=== PATIENT | female | born 1985 | race Caucasian/White ===

== ENCOUNTER 2020-05-03 10:50 | Inpatient (IN) | payer SELFPAY ==
[~2020-05-03] VITALS: Ht 154.9 cm; Wt 86.0 kg
[2020-05-03] MEDS ORDERED: NS IV 1000 ML 1,000 ML IV STA (11:12)
[2020-05-03] MEDS ORDERED: fentaNYL INJ 100 MCG/2 ML AMP IVP STA ×2 (11:16→13:26)
--- NOTE | 2020-05-03 11:25 | ED EENT ---
History of Present Illness General Chief Complaint: Dental Problems/Pain Stated Complaint: ABCESS TOOTH Nursing Triage Note: AMB TO ROOM WITH MOTHER WAS SENT FROM [facility] WITH TOOTH ACHE. ONSET OF TOOTH ACHE ON SATURDAY. WAS SEEN IN [facility] ON SAT AND STARTED ON AMOXIL. DID NOT HELP SO WENT BACK TO ED ON SATURDAY. RECEIVED IM OF ROCEPHIN. Source: patient Exam Limitations: no limitations (TAMIKA BRAXTON,AZRA KRAUSE) History of Present Illness Date Seen by Provider: May 03, 2020 Time Seen by Provider: 11:06 Initial Comments Presents to the ED via private vehicle. Complains of right tooth abscess and jaw pain. She was seen 04/30/20 at the [facility] for these symptoms. She was prescribed pain medications and penicillin TID at that time. Her symptoms worsened and she returned to the ED 05/01/20, rocephin IM and IM steroids given at that time. She states symptoms improved until last night. She was seen at [facility] today and advised to go to the ED. Associated symptoms include neck pain/swelling, right ear pain, right jaw pain, dysphagia, fever, chills, and sore throat. She has tried hydromorphone and tylenol for pain with limited relief. Last taken 3 hours prior to arrival. She has had a dental abscess in the past followed by a tooth extraction. She has been unable to see a dentist for her current concerns. She is a current everyday drinker - 1 pint/day of whiskey. Has not drank since . Denies withdrawal symptoms. Timing/Duration: gradual, last week Location: dental (and right jaw) Prearrival Treatment: other (amoxicillin, rocephin, prednisone, oral pain medications) Associated Symptoms: No cough, No drooling; facial pain/swelling, fever, sore throat, tooth pain (TAMIKA BRAXTON,MED STUDENT) Timing/Duration: last week Location: facial, dental (and right jaw) Prearrival Treatment: prescription meds Associated Symptoms: facial pain/swelling, fever, sore throat, tooth pain (SANDRA JACOB MD) Allergies and Home Medications Allergies Coded Allergies: Latex, Natural Rubber (Verified Allergy, Unknown, 05/03/20) carbamazepine (Verified Allergy, Unknown, 05/03/20) latex (Verified Allergy, Unknown, 05/03/20) tramadol (Verified Allergy, Unknown, 05/03/20) Patient Home Medication List Home Medication List Reviewed: Yes (SANDRA JACOB MD) Review of Systems Review of Systems Constitutional: chills, fever Ears: Pain (right) Mouth: see HPI, pain, swelling Throat: pain, painful swallowing Respiratory: No cough Cardiovascular: No chest pain Gastrointestinal: No abdominal pain, No diarrhea Skin: no symptoms reported (TAMIKA BRAXTON MED STUDENT) Constitutional: chills, fever Ears: Pain (right); Denies Purulent Discharge Mouth: pain, swelling Throat: pain; denies hoarse, denies aphonia Respiratory: No dyspnea on exertion, No short of breath (SANDRA JACOB MD) All Other Systems Reviewed Negative Unless Noted: Yes (SANDRA JACOB MD) Past Ximlikv-Phpbyf-Llapji Hx Past Med/Social Hx: Reviewed Nursing Past Med/Soc Hx (SANDRA JACOB MD) Patient Social History Alcohol Use: Regular Use Alcohol Beverage of Choice: Whiskey Recent Infectious Disease Expo: No (TAMIKA BRAXTON MED STUDENT) Past Medical History Surgeries: Yes (HERNIA) Section Respiratory: No Cardiac: Yes Hypertension Neurological: No Genitourinary: No Gastrointestinal: No Musculoskeletal: No Endocrine: Yes Hypothyroidsim Cancer: No Integumentary: No (TAMIKA BRAXTON MED STUDENT) Family Medical History Reviewed Nursing Family Hx (SANDRA JACOB MD) Physical Exam Vital Signs Vital Signs - First Documented 05/03/20 10:54 Temp 36.7 Pulse 95 Resp 18 B/P (MAP) 151/118 (129) Pulse Ox 97 O2 Delivery Room Air (SANDRA JACOB MD) Height, Weight, BMI Height: '" Weight: lbs. oz. kg; 35.00 BMI Method: General Appearance: WD/WN, mild distress Eyes: bilateral eye PERRL, bilateral eye EOMI Mouth/Throat: maxillary swelling (limited exam due to pain with opening mouth), other (poor dentition) Neck: other (right jaw and neck swelling) Cardiovascular: regular rate, rhythm, no murmur Respiratory: lungs clear, normal breath sounds, no respiratory distress, no accessory muscle use Gastrointestinal: non tender, soft Neurologic/Psychiatric: alert, normal mood/affect, oriented x 3 Skin: normal color, warm/dry (VENN,TAMIKA,MED STUDENT) General Appearance: WD/WN, mild distress Nose: normal inspection; No active bleeding Mouth/Throat: maxillary swelling (limited exam due to pain with opening mouth but no obvious abscess within the mouth.), other (poor dentition) Neck: full range of motion, supple, lymphadenopathy (R); No lymphadenopathy (L) Cardiovascular: regular rate, rhythm, no murmur Respiratory: lungs clear, normal breath sounds Gastrointestinal: non tender, soft Neurologic/Psychiatric: alert, normal mood/affect, oriented x 3 Skin: normal color, warm/dry (SANDRA JACOB MD) Progress/Results/Core Measures Results/Orders Lab Results Laboratory Tests Test 05/03/20 11:23 05/03/20 12:10 Range/Units White Blood Count 11.8 H 4.3-11.0 10^3/uL Red Blood Count 4.30 3.80-5.11 10^6/uL Hemoglobin 13.6 11.5-16.0 g/dL Hematocrit 39 35-52 % Mean Corpuscular Volume 91 80-99 fL Mean Corpuscular Hemoglobin 32 25-34 pg Mean Corpuscular Hemoglobin Concent 35 32-36 g/dL Red Cell Distribution Width 13.7 10.0-14.5 % Platelet Count 367 130-400 10^3/uL Mean Platelet Volume 8.9 L 9.0-12.2 fL Immature Granulocyte % (Auto) 0 % Neutrophils (%) (Auto) 73 42-75 % Lymphocytes (%) (Auto) 20 12-44 % Monocytes (%) (Auto) 5 0-12 % Eosinophils (%) (Auto) 1 0-10 % Basophils (%) (Auto) 0 0-10 % Neutrophils # (Auto) 8.6 H 1.8-7.8 10^3/uL Lymphocytes # (Auto) 2.4 1.0-4.0 10^3/uL Monocytes # (Auto) 0.6 0.0-1.0 10^3/uL Eosinophils # (Auto) 0.1 0.0-0.3 10^3/uL Basophils # (Auto) 0.0 0.0-0.1 10^3/uL Immature Granulocyte # (Auto) 0.0 0.0-0.1 10^3/uL Prothrombin Time 13.1 12.2-14.7 SEC INR Comment 1.0 0.8-1.4 Activated Partial Thromboplast Time 32 24-35 SEC Sodium Level 136 135-145 MMOL/L Potassium Level 3.5 L 3.6-5.0 MMOL/L Chloride Level 105 98-107 MMOL/L Carbon Dioxide Level 19 L 21-32 MMOL/L Anion Gap 12 5-14 MMOL/L Blood Urea Nitrogen 8 7-18 MG/DL Creatinine 0.61 0.60-1.30 MG/DL Estimat Glomerular Filtration Rate > 60 BUN/Creatinine Ratio 13 Glucose Level 127 H 70-105 MG/DL Calcium Level 9.0 8.5-10.1 MG/DL Corrected Calcium 8.8 8.5-10.1 MG/DL Total Bilirubin 0.2 0.1-1.0 MG/DL Aspartate Amino Transf (AST/SGOT) 28 5-34 U/L Alanine Aminotransferase (ALT/SGPT) 32 0-55 U/L Alkaline Phosphatase 78 40-136 U/L C-Reactive Protein High Sensitivity 5.36 H 0.00-0.50 MG/DL Total Protein 7.6 6.4-8.2 GM/DL Albumin 4.2 3.2-4.5 GM/DL Lactic Acid Level 0.72 0.50-2.00 MMOL/L (SANDRA JACOB MD) My Orders Orders - SANDRA JACOB MD Cbc With Automated Diff (05/03/20 11:12) Comprehensive Metabolic Panel (05/03/20 11:12) Blood Culture (05/03/20 11:12) Protime With Inr (05/03/20 11:12) Partial Thromboplastin Time (05/03/20 11:12) Ed Iv/Invasive Line Start (05/03/20 11:12) Vital Signs Adult Sepsis Patie Q15M (05/03/20 11:12) O2 (05/03/20 11:12) Remove Rings In Anticipation O (05/03/20 11:12) Lactic Acid Analyzer (05/03/20 11:12) Hs C Reactive Protein (05/03/20 11:12) Ct Neck (Soft Tissue) W (05/03/20 11:12) Ns Iv 1000 Ml (Sodium Chloride 0.9%) (05/03/20 11:12) Fentanyl Injection (Sublimaze Injection (05/03/20 11:16) Iohexol Injection (Omnipaque 350 Mg/Ml 1 (05/03/20 11:30) Received Contrast (Hold Metformin- Contr (05/03/20 11:30) Sodium Chloride Flush (Catheter Flush Sy (05/03/20 11:30) Ns (Ivpb) (Sodium Chloride 0.9% Ivpb Bag (05/03/20 11:30) Fentanyl Injection (Sublimaze Injection (05/03/20 13:26) Lorazepam Injection (Ativan Injection) (05/03/20 13:45) Nicotine Patch (Nicoderm Patch) (05/03/20 13:45) Ceftriaxone For Iv Use (Rocephin For I (05/03/20 13:34) Clindamycin 900 Mg/50 Ml Ivpb (Cleocin P (05/03/20 13:45) (SANDRA JACOB MD) Medications Given in ED Current Medications Medications Dose Ordered Sig/Leonard Route Start Time Stop Time Status Last Admin Dose Admin Iohexol 75 ml ONCE ONCE IV 05/03/20 11:30 05/03/20 11:31 DC 05/03/20 12:29 75 ML Sodium Chloride 100 ml ONCE ONCE IV 05/03/20 11:30 05/03/20 11:31 DC 05/03/20 12:29 80 ML (SANDRA JACOB MD) Vital Signs/I&O 05/03/20 10:54 Temp 36.7 Pulse 95 Resp 18 B/P (MAP) 151/118 (129) Pulse Ox 97 O2 Delivery Room Air (SANDRA JACOB MD) Blood Pressure Mean: 129 Progress Progress Note : Progress Note I have seen and evaluated the patient and agree with above except as indicated. I have directed the plan of care. Patient is here after failed outpatient antibiotic with Rocephin IM and oral amoxicillin. She had facial swelling and pain and was started on medications including a shot of steroid. This initially did help but then worsened and is become more severe. Pain not controlled with Vicoprofen. She was seen at the [facility] and sent here for further evaluatio n. Patient states that it hurts to open her mouth because of the pain. Is able to swallow. Is a moderate to heavy drinker but has been off alcohol for several days and states that she has not had seizure symptoms or other problems with that. She does continue to smoke. Evaluation as above. Plan for IV, labs, blood cultures and lactic acid as a part of the sepsis protocol. No indication for chest x-ray or UA at this point. Fentanyl 50 mcg IV ordered. We will get CT of the soft tissues of the neck to evaluate for abscess. Monitor patient. 1330: I discussed the case with Dr. Royal and she accepts patient for admission, inpatient status and request consultation with Dr. Villarreal. This was done. We have agreed on Rocephin and clindamycin for antibiotic of choice and he will see the patient later tonight. N.p.o. after midnight. Fentanyl 75 mcg IV ordered now as well as Ativan 0.5 mg IV for anxiety and nicotine patch. Rocephin 1 g IV and clindamycin 900 mg IV ordered. Admit, inpatient status. Patient agrees with plan. (SANDRA JACOB MD) Diagnostic Imaging Plain Films/CT/US/NM/MRI: other Comments [facility], [place] NAME: HERNAN MORALEZ [facility] REC#: [id number] PT STATUS: REG ER : 1985 PHYSICIAN: SANDRA JACOB MD ADMIT DATE: 05/03/20/ER Draft Date of Exam:05/03/20 CT NECK (SOFT TISSUE) W PROCEDURE: CT neck soft tissue with contrast. TECHNIQUE: Multiple contiguous axial images were obtained through the neck after the administration of contrast. Auto Exposure Controls were utilized during the CT exam to meet ALARA standards for radiation dose reduction. INDICATION: Right-sided jaw swelling and pain for 5 days. COMPARISON: No prior studies are available for comparison. FINDINGS: The visualized intracranial structures are unremarkable. There is a small amount of fluid in the left maxillary sinus. The posterior nasopharynx and oropharynx are unremarkable. The parapharyngeal fat planes are preserved. The epiglottis and larynx are unremarkable. No thyroid masses are seen. The submandibular and parotid glands appear to be symmetric bilaterally. There does appear to be some edema in the subcutaneous tissues of the right face. There is some thickening of the right masseter muscle noted. There appears to be a large dental caries involving the right-sided mandibular molars. No discrete fluid collection is identified. There is no abscess. There appear to be normal sized lymph nodes in the jugulodigastric and posterior cervical spaces bilaterally. IMPRESSION: Findings consistent with right facial cellulitis. No discrete fluid collection or abscess is identified. Dictated on workstation # [id number] Dict: 05/03/20 1232 Trans: 05/03/20 1239 [id number] Interpreted by: MELI GIL MD Electronically signed by: (SANDRA JACOB MD) Departure Communication (Admissions) Time/Spoke to Admitting Phy: 13:27 Time/Spoke to Consulting Phy: 13:30 (SANDRA JACOB MD) Impression Primary Impression: Facial cellulitis Disposition: ADMITTED INPATIENT Condition: Stable Admissions Decision to Admit Reason: Admit from ER (General) Decision to Admit/Date: May 03, 2020 Time/Decision to Admit Time: 13:27 (SANDRA JACOB MD) Departure-Patient Inst. Referrals: NO,LOCAL PHYSICIAN (PCP/Family) Primary Care Physician TAMIKA BRAXTON,MED STUDENT May 03, 2020 11:25 SANDRA JACOB MD May 03, 2020 13:53
[2020-05-03] MEDS ORDERED: CATHETER FLUSH 10 ML SYR IV PRN ×2 (11:30→15:15)
[2020-05-03] MEDS ORDERED: HOLD METFORMIN - RECEIVED CONTRAST 20 ML VIAL IV SCH (11:30)
[2020-05-03] MEDS ORDERED: IOHEXOL 350 MG/ML 100 ML (OMNIPAQUE 350) VIAL IV ONE (11:30)
[2020-05-03] MEDS ORDERED: NS 100 ML (IVPB) BAG IV ONE (11:30)
[2020-05-03 11:41] LABS: BASOPHILS % (AUTO) 0 % (0-10); EOSINOPHILS # (AUTO) 0.1 10^3/uL (0.0-0.3); EOSINOPHILS % (AUTO) 1 % (0-10); HEMATOCRIT 39 % (35-52); HEMOGLOBIN 13.6 g/dL (11.5-16.0); LYMPHOCYTES # (AUTO) 2.4 10^3/uL (1.0-4.0); LYMPHOCYTES % (AUTO) 20 % (12-44); MEAN CORPUSCULAR HEMOGLOBIN 32 pg (25-34); MEAN CORPUSCULAR HGB CONC 35 g/dL (32-36); MEAN CORPUSCULAR VOLUME 91 fL (80-99); MEAN PLATELET VOLUME 8.9 fL (9.0-12.2); MONOCYTES # (AUTO) 0.6 10^3/uL (0.0-1.0); MONOCYTES % (AUTO) 5 % (0-12); NEUTROPHILS # (AUTO) 8.6 10^3/uL (1.8-7.8); NEUTROPHILS % (AUTO) 73 % (42-75); PLATELET COUNT 367 10^3/uL (130-400); WHITE BLOOD COUNT 11.8 10^3/uL (4.3-11.0)
[2020-05-03 11:54] LABS: ALBUMIN 4.2 GM/DL (3.2-4.5); CHLORIDE 105 MMOL/L (98-107); POTASSIUM 3.5 MMOL/L (3.6-5.0); SODIUM 136 MMOL/L (135-145)
[2020-05-03 11:55] LABS: PROTHROMBIN TIME PATIENT 13.1 SEC (12.2-14.7)
[2020-05-03 11:57] LABS: GLUCOSE 127 MG/DL (70-105); TOTAL PROTEIN 7.6 GM/DL (6.4-8.2)
[2020-05-03 11:58] LABS: BILIRUBIN,TOTAL 0.2 MG/DL (0.1-1.0); CARBON DIOXIDE 19 MMOL/L (21-32)
[2020-05-03 12:00] LABS: ALKALINE PHOSPHATASE 78 U/L (40-136); CREATININE SERUM 0.61 MG/DL (0.60-1.30); GFR ESTIMATED > 60
[2020-05-03 12:01] LABS: BUN/CREATININE RATIO 13
[2020-05-03 12:03] LABS: ALANINE AMINOTRANSFERASE 32 U/L (0-55)
--- NOTE | 2020-05-03 12:40 | Diagnostic Imaging Report ---
PROCEDURE: CT neck soft tissue with contrast. TECHNIQUE: Multiple contiguous axial images were obtained through the neck after the administration of contrast. Auto Exposure Controls were utilized during the CT exam to meet ALARA standards for radiation dose reduction. INDICATION: Right-sided jaw swelling and pain for 5 days. COMPARISON: No prior studies are available for comparison. FINDINGS: The visualized intracranial structures are unremarkable. There is a small amount of fluid in the left maxillary sinus. The posterior nasopharynx and oropharynx are unremarkable. The parapharyngeal fat planes are preserved. The epiglottis and larynx are unremarkable. No thyroid masses are seen. The submandibular and parotid glands appear to be symmetric bilaterally. There does appear to be some edema in the subcutaneous tissues of the right face. There is some thickening of the right masseter muscle noted. There appears to be a large dental caries involving the right-sided mandibular molars. No discrete fluid collection is identified. There is no abscess. There appear to be normal sized lymph nodes in the jugulodigastric and posterior cervical spaces bilaterally. IMPRESSION: Findings consistent with right facial cellulitis. No discrete fluid collection or abscess is identified. Dictated by: Dictated on workstation # [id number]
[2020-05-03] MEDS ORDERED: cefTRIAXone FOR IV USE 1,000 MG in WATER (STERILE) FOR INJECTION 10 ML IV STA (13:34)
[2020-05-03] MEDS ORDERED: NICOTINE 21 MG (NICODERM) PATCH TD ONE (13:45)
[2020-05-03] MEDS ORDERED: CLINDAMYCIN 900 MG/50 ML IVPB 50 ML IV ONE (13:45)
[2020-05-03] MEDS ORDERED: LORazepam INJ 2 MG/ML (ATIVAN) VIAL IVP ONE (13:45)
[2020-05-03] MEDS ORDERED: morphine INJ 10 MG/ML 1ML (SYR OR VIAL) ONE (14:51)
[2020-05-03] MEDS ORDERED: diphenhydrAMINE 25 MG TAB (BENADRYL) PO ONE (14:59)
[2020-05-03] MEDS ORDERED: ONDANSETRON 4 MG/2 ML (SDV) Z0FRAN IV PRN (15:00)
[2020-05-03] MEDS ORDERED: LORazepam INJ 2 MG/ML (ATIVAN) VIAL IV PRN (15:15)
[2020-05-03 15:19] VITALS: BP 143/102
[2020-05-03] MEDS: morphine INJ 10 MG/ML 1ML (SYR OR VIAL) IV PRN (18:00)
[2020-05-03] MEDS: KETOROLAC 15 MG/ML VIAL IV PRN (18:49)
[2020-05-03] MEDS ORDERED: diphenhydrAMINE 25 MG TAB (BENADRYL) PO PRN ×2 (19:00→20:45)
[2020-05-03 19:52] VITALS: BP 138/83
[2020-05-03] MEDS ORDERED: CALCIUM CARBONATE 500 MG (TUMS) TAB.CHEW PO PRN (20:45)
[2020-05-03] MEDS ORDERED: MELATONIN 3 MG TABLET PO PRN (20:45)
[2020-05-03] MEDS ORDERED: ACETAMINOPHEN 500 MG TAB (TYLENOL) PO PRN (20:45)
[2020-05-03] MEDS ORDERED: DOCUSATE SODIUM 100 MG (COLACE) CAP PO PRN (20:45)
[2020-05-03] MEDS: SENNA W/DOCUSATE (SENOKOT S) TABLET PO SCH (21:27)
[2020-05-03] MEDS: CLINDAMYCIN 900 MG/50 ML IVPB 50 ML IV SCH (21:29)
[2020-05-04] VITALS (12 sets, daily range): BP systolic 117–148; BP diastolic 72–95
[2020-05-04] MEDS: morphine INJ 10 MG/ML 1ML (SYR OR VIAL) IV PRN ×4 (00:03→19:49)
[2020-05-04] MEDS: NS IV 1000 ML 1,000 ML IV SCH ×4 (00:04→19:42)
[2020-05-04] MEDS: KETOROLAC 15 MG/ML VIAL IV PRN ×3 (05:23→22:36)
[2020-05-04] MEDS: CLINDAMYCIN 900 MG/50 ML IVPB 50 ML IV SCH ×3 (05:24→21:22)
[2020-05-04 05:51] LABS: BASOPHILS # (AUTO) 0.1 10^3/uL (0.0-0.1); BASOPHILS % (AUTO) 1 % (0-10); EOSINOPHILS # (AUTO) 0.2 10^3/uL (0.0-0.3); EOSINOPHILS % (AUTO) 2 % (0-10); HEMATOCRIT 37 % (35-52); HEMOGLOBIN 12.1 g/dL (11.5-16.0); LYMPHOCYTES # (AUTO) 2.8 10^3/uL (1.0-4.0); LYMPHOCYTES % (AUTO) 32 % (12-44); MEAN CORPUSCULAR HEMOGLOBIN 31 pg (25-34); MEAN CORPUSCULAR HGB CONC 33 g/dL (32-36); MEAN CORPUSCULAR VOLUME 95 fL (80-99); MEAN PLATELET VOLUME 9.1 fL (9.0-12.2); MONOCYTES # (AUTO) 0.7 10^3/uL (0.0-1.0); MONOCYTES % (AUTO) 8 % (0-12); NEUTROPHILS % (AUTO) 57 % (42-75); PLATELET COUNT 328 10^3/uL (130-400); WHITE BLOOD COUNT 8.7 10^3/uL (4.3-11.0)
[2020-05-04 06:02] LABS: CHLORIDE 108 MMOL/L (98-107); POTASSIUM 3.7 MMOL/L (3.6-5.0); SODIUM 136 MMOL/L (135-145)
[2020-05-04 06:03] LABS: CALCIUM 8.2 MG/DL (8.5-10.1)
[2020-05-04 06:04] LABS: GLUCOSE 81 MG/DL (70-105)
[2020-05-04 06:05] LABS: CARBON DIOXIDE 17 MMOL/L (21-32)
[2020-05-04 06:08] LABS: CREATININE SERUM 0.58 MG/DL (0.60-1.30); GFR ESTIMATED > 60
[2020-05-04 06:09] LABS: BUN/CREATININE RATIO 10
[2020-05-04] MEDS: SENNA W/DOCUSATE (SENOKOT S) TABLET PO SCH ×2 (08:39→19:35)
[2020-05-04] MEDS: NICOTINE 21 MG (NICODERM) PATCH TD SCH (08:47)
[2020-05-04] MEDS: NICOTINE PATCH REMOVAL TP SCH (08:52)
--- NOTE | 2020-05-04 10:58 | History & Physical-Hospitalist ---
PILAR HELTON MED STUDENT 05/04/20 1058: History of Present Illness HPI/Chief Complaint 34 yo female presents to for right facial cellulitis. Began 04/30/20 where she noticed swelling and pain. Was given pain medication and penicillin at the [facility]. Returned the following day due to increasing pain and swelling. Was administered IM rocephin and steroids. Pt notes improvement until the evening of 05/03 where her condition was worsening. Pt tried contacting dentist but was told that due to the extensive swelling the dentist would be unable to perform the tooth extraction. Pt does have a hx of abscess with tooth extraction, HTN, hypothyroidism, and chronic alcohol use. At worst pain is a 8/10. Swelling consists of right mandible and upper 1/3rd of neck. No erythema noted, but warmth and tenderness to palpation noted. Source: patient, RN/MD (ED summary/ notes) Exam Limitations: no limitations Date Seen 05/04/20 Time Seen by a Provider: 07:45 Attending Physician Gaviota Vidal DO PCP No,Local Physician Referring Physician Date of Admission May 03, 2020 at 13:38 Home Medications & Allergies Home Medications Reviewed patient Home Medication Reconciliation performed by pharmacy medication reconciliations mri technician and/or nursing. Patients Allergies have been reviewed. Allergies Allergies Coded Allergies delgadillo (Unverified Allergy, Severe, Anaphylaxis, 05/04/20) Mercedes Beans specifically, per patient. strawberry (Verified Allergy, Severe, Anaphylaxis, 05/03/20) Latex, Natural Rubber (Verified Allergy, Unknown, 05/03/20) carbamazepine (Verified Allergy, Unknown, 05/03/20) latex (Verified Allergy, Unknown, 05/03/20) tramadol (Verified Allergy, Unknown, 05/03/20) Uncoded Allergies MERCEDES DELGADILLO ( Allergy, Severe, Anaphylaxis, 05/03/20) Past Rmxkhzk-Lorlko-Sdqtod Hx Past Med/Social Hx: Reviewed Nursing Past Med/Soc Hx Patient Social History Alcohol Use: Regular Use Alcohol Beverage of Choice: Whiskey Recreational Drug Use: No Recent Foreign Travel: No Contact w/other who traveled: No Recent Infectious Disease Expo: No Immunizations Up To Date Date of Influenza Vaccine: Nov 26, 2019 Past Medical History Surgeries: Section Cardiac: Hypertension Endocrine: Hypothyroidsim Family History Reviewed Nursing Family Hx Review of Systems Constitutional: chills; No dizziness; malaise EENTM: dental problems (poor dentition), mouth pain (right sided), mouth swelling (right sided) Respiratory: No cough, No short of breath Cardiovascular: No chest pain, No palpitations Gastrointestinal: No abdominal pain, No nausea, No vomiting Genitourinary: No dysuria, No hematuria Musculoskeletal: No back pain, No muscle pain Psychiatric/Neurological: Weakness Physical Exam Physical Exam Vital Signs Vital Signs - First Documented 05/03/20 10:54 Temp 36.7 Pulse 95 Resp 18 B/P (MAP) 151/118 (129) Pulse Ox 97 O2 Delivery Room Air Capillary Refill : Less Than 3 Seconds Height, Weight, BMI Height: '" Weight: lbs. oz. kg; 35.00 BMI Method: General Appearance: No Apparent Distress, WD/WN Eyes: Bilateral Eye Normal Inspection HEENT: PERRL/EOMI, Moist Mucous Membranes, Other (Right mandibular swelling, warmth, and tenderness w/o erythema) Neck: Supple, Limited Range of Motion, Tender Lateral (right sided), Other (right sided neck swelling, warmth, and tenderness w/o erythema) Respiratory: Chest Non Tender, Lungs Clear, Normal Breath Sounds, No Accessory Muscle Use, No Respiratory Distress Cardiovascular: Regular Rate, Rhythm, No Edema, No Murmur, Normal Peripheral Pulses Gastrointestinal: Normal Bowel Sounds, Non Tender, Soft Rectal: Deferred Back: No Vertebral Tenderness Extremity: Normal Inspection, Non Tender, No Calf Tenderness, No Pedal Edema Neurologic/Psychiatric: Alert, Oriented x3, No Motor/Sensory Deficits, Normal Mood/Affect, well shooter II-XII Norm as Tested Skin: Normal Color, Warm/Dry Lymphatic: No Adenopathy (cervical, supraclavicular, axillary) Results Results/Procedures Labs Laboratory Tests 05/03/20 11:23 05/04/20 05:10 Patient resulted labs reviewed. Assessment/Plan Assessment and Plan ASSESSMENT: Right facial cellulitis Poor dentition HTN Hypothyroidism Chronic alcohol use Hx of abscess with tooth extraction PLAN: Appreciate Dr. Gil recommendation Continue rocephin/ clindamycin Pain management NPO GAVIOTA VIDAL DO 05/05/20 0514: History of Present Illness HPI/Chief Complaint CC: Right facial cellulitis HPI: This is a 34yoWF who has been treated with antibiotics for a tooth abscess but worsened to the point of facial cellulitis and erythema and elevated white count. Dr. Villarreal has been consulted and she was placed on IV antibiotics and IV fluids and pain medication and will evaluate the need for any type of procedure. Source: patient Exam Limitations: no limitations Past Senxxfi-Qjkfpx-Qlojkm Hx Past Med/Social Hx: Reviewed Nursing Past Med/Soc Hx, Reviewed and Corrections made Patient Social History Marrital Status: single Employed/Student: employed Alcohol Use: Occasionally Uses Smoking Status: Current Everyday Smoker Review of Systems Constitutional: see HPI, weakness EENTM: dental problems Physical Exam Physical Exam General Appearance: No Apparent Distress, Anxious Eyes: Right Eye Normal Inspection, Right Eye PERRL HEENT: PERRL/EOMI, Normal ENT Inspection, Pharynx Normal, Moist Mucous Membranes, Other (right facial edema) Neck: Full Range of Motion, Normal Inspection, Non Tender Respiratory: Chest Non Tender, Lungs Clear, Normal Breath Sounds, No Accessory Muscle Use, No Respiratory Distress Cardiovascular: Regular Rate, Rhythm, No Edema, No Gallop, No JVD, No Murmur, Normal Peripheral Pulses Gastrointestinal: Normal Bowel Sounds, No Organomegaly, No Pulsatile Mass, Non Tender, Soft Back: Normal Inspection, No CVA Tenderness, No Vertebral Tenderness Extremity: Normal Capillary Refill, Normal Inspection, Normal Range of Motion, Non Tender, No Calf Tenderness, No Pedal Edema Neurologic/Psychiatric: Alert, Oriented x3, No Motor/Sensory Deficits, Normal Mood/Affect Skin: Normal Color, Warm/Dry Lymphatic: No Adenopathy Assessment/Plan Admission Diagnosis Assessment: Right facial cellulitis likely dental source failed PO abx outpatient Smoker Plan: IV abx Dr Villarreal appreciated Admission Status: Inpatient Order (span 2 midnights) Reason for Inpatient Admission: failed PO abx and now abscess Diagnosis/Problems Diagnosis/Problems (1) Facial cellulitis Status: Acute Supervisory-Addendum Brief Verification & Attestation Participated in pt care: history, MDM, physical Personally performed: exam, history, MDM, supervision of care Care discussed with: Medical Student Procedures: n/a Results interpretation: Verified all documentation Verification and Attestation of Medical Student E/M Service A medical student performed and documented this service in my presence. I reviewed and verified all information documented by the medical student and made modifications to such information, when appropriate. I personally performed the physical exam and medical decision making. Gaviota Vidal, May 05, 2020,05:14 PILAR HELTON MED STUDENT May 04, 2020 10:58 GAVIOTA VIDAL DO May 05, 2020 05:14
[2020-05-04] MEDS ORDERED: ACETAMINOPHEN 325 MG TABLET PO PRN (11:45)
[2020-05-04] MEDS ORDERED: LOSA50TA63 PO (12:33)
[2020-05-04] MEDS ORDERED: ACHD5005 PO (12:33)
[2020-05-04] MEDS ORDERED: MULT-577 PO (12:33)
[2020-05-04] MEDS ORDERED: AMOX500C2 PO (12:33)
[2020-05-04] MEDS ORDERED: LEVO50TA6 PO (12:33)
[2020-05-04] MEDS ORDERED: LACTATED RINGERS 1,000 ML IV PRN (13:45)
[2020-05-04] MEDS ORDERED: cefTRIAXone 1,000 MG/SWFI 10 ML IV PUSH IV SCH ×2 (14:00)
[2020-05-04] MEDS ORDERED: fentaNYL INJ 100 MCG/2 ML AMP ONE (14:06)
[2020-05-04] MEDS ORDERED: MIDAZOLAM 2 MG/2 ML (VERSED) VIAL ONE (14:06)
[2020-05-04] MEDS ORDERED: LIDOCAINE PF 2% 5 ML (XYLOCAINE) VIAL ONE (14:10)
[2020-05-04] MEDS ORDERED: ONDANSETRON 4 MG/2 ML (SDV) Z0FRAN ONE (14:10)
[2020-05-04] MEDS ORDERED: proPOfol 200 MG/20 ML (DIPRIVAN) VIAL IV ONE (14:10)
[2020-05-04] MEDS ORDERED: SEVOFLURANE (ULTANE) 15 ML INHAL SOLN ONE (14:11)
[2020-05-04] MEDS ORDERED: KETAMINE/NaCl 50 MG/5 ML SYRINGE (ED ONLY) ONE (14:20)
[2020-05-04] MEDS ORDERED: GLYCOPYRROLATE 0.2 MG/ML (ROBINUL) 2 ML VIAL ONE (14:20)
[2020-05-04] MEDS ORDERED: LIDOCAINE/EPI 2% 1:100,00 (XYLOCAINE) 20 ML VIAL ONE (14:25)
[2020-05-04] MEDS ORDERED: NEO/POLY/BAC (NEOSPORIN) OINT 15 GM TUBE ONE (14:26)
[2020-05-04] MEDS ORDERED: ROPIVACAINE 5MG/ML 30ML VIAL ONE (14:26)
[2020-05-04] MEDS ORDERED: ROCURONIUM 10 MG/ML 5 ML SYRINGE IV ONE (16:33)
[2020-05-04] MEDS ORDERED: HYDROmorphone 2 MG/ML VIAL (DILAUDID) ONE (16:54)
[2020-05-04] MEDS ORDERED: HYDROmorphone 2 MG/ML VIAL (DILAUDID) IV ONE (17:00)
[2020-05-04] MEDS ORDERED: ONDANSETRON 4 MG/2 ML (SDV) Z0FRAN IVP PRN (17:00)
[2020-05-05 03:15] VITALS: BP 138/78
[2020-05-05] MEDS: NS IV 1000 ML 1,000 ML IV SCH (04:04)
[2020-05-05] MEDS: CLINDAMYCIN 900 MG/50 ML IVPB 50 ML IV SCH (05:50)
[2020-05-05 06:10] LABS: BASOPHILS % (AUTO) 0 % (0-10); EOSINOPHILS % (AUTO) 0 % (0-10); HEMATOCRIT 32 % (35-52); LYMPHOCYTES # (AUTO) 1.6 10^3/uL (1.0-4.0); LYMPHOCYTES % (AUTO) 15 % (12-44); MEAN CORPUSCULAR HEMOGLOBIN 32 pg (25-34); MEAN CORPUSCULAR HGB CONC 34 g/dL (32-36); MEAN CORPUSCULAR VOLUME 93 fL (80-99); MEAN PLATELET VOLUME 9.3 fL (9.0-12.2); MONOCYTES # (AUTO) 0.4 10^3/uL (0.0-1.0); MONOCYTES % (AUTO) 4 % (0-12); NEUTROPHILS # (AUTO) 8.3 10^3/uL (1.8-7.8); NEUTROPHILS % (AUTO) 81 % (42-75); PLATELET COUNT 319 10^3/uL (130-400); WHITE BLOOD COUNT 10.2 10^3/uL (4.3-11.0)
[2020-05-05 06:28] LABS: ALANINE AMINOTRANSFERASE 31 U/L (0-55); ALBUMIN 3.3 GM/DL (3.2-4.5); ALKALINE PHOSPHATASE 64 U/L (40-136); BILIRUBIN,TOTAL 0.2 MG/DL (0.1-1.0); BUN/CREATININE RATIO 13; CALCIUM 8.6 MG/DL (8.5-10.1); CARBON DIOXIDE 19 MMOL/L (21-32); CHLORIDE 109 MMOL/L (98-107); CREATININE SERUM 0.53 MG/DL (0.60-1.30); GFR ESTIMATED > 60; GLUCOSE 118 MG/DL (70-105); POTASSIUM 4.1 MMOL/L (3.6-5.0); SODIUM 137 MMOL/L (135-145); TOTAL PROTEIN 5.7 GM/DL (6.4-8.2)
[2020-05-05] MEDS: KETOROLAC 15 MG/ML VIAL IV PRN ×2 (06:42→12:24)
[2020-05-05 08:00] VITALS: BP 126/84
[2020-05-05] MEDS: NICOTINE 21 MG (NICODERM) PATCH TD SCH (09:57)
[2020-05-05] MEDS: SENNA W/DOCUSATE (SENOKOT S) TABLET PO SCH (09:57)
[2020-05-05] MEDS: NICOTINE PATCH REMOVAL TP SCH (09:57)
[2020-05-05] MEDS ORDERED: ACHD5005 PO (11:54)
[2020-05-05] MEDS ORDERED: CLIN300C12 PO (11:54)
--- NOTE | 2020-05-05 11:58 | Discharge Summary ---
PILAR HELTON MED STUDENT 05/05/20 1158: Diagnosis/Chief Complaint Date of Admission May 03, 2020 at 13:38 Date of Discharge Discharge Date: May 05, 2020 Admission Diagnosis Assessment: Right facial cellulitis likely dental source failed PO abx outpatient Smoker Plan: IV abx Dr Villarreal appreciated Primary Care No,Local Physician Discharge Diagnosis (1) Facial cellulitis Status: Acute Discharge Summary Discharge Physical Exam Allergies: Coded Allergies: delgadillo (Unverified Allergy, Severe, Anaphylaxis, 05/04/20) Mercedes Beans specifically, per patient. strawberry (Verified Allergy, Severe, Anaphylaxis, 05/03/20) Latex, Natural Rubber (Verified Allergy, Unknown, 05/03/20) carbamazepine (Verified Allergy, Unknown, 05/03/20) latex (Verified Allergy, Unknown, 05/03/20) tramadol (Verified Allergy, Unknown, 05/03/20) Uncoded Allergies: MERCEDES DELGADILLO (Allergy, Severe, Anaphylaxis, 05/03/20) Vitals & I&Os Vital Signs Date Time Temp Pulse Resp B/P (MAP) Pulse Ox O2 Delivery O2 Flow Rate FiO2 05/05/20 12:00 37.0 60 18 121/77 (92) 94 Room Air 05/05/20 08:00 3.00 General Appearance: No Apparent Distress, WD/WN HEENT: PERRL/EOMI, Moist Mucous Membranes, Other (Post I/D with tooth extraction swelling) Respiratory: Chest Non Tender, Lungs Clear, Normal Breath Sounds, No Accessory Muscle Use, No Respiratory Distress Cardiovascular: Regular Rate, Rhythm, No Edema, No Gallop, No Murmur Gastrointestinal: Normal Bowel Sounds, Non Tender, Soft Extremity: Normal Inspection, Non Tender, No Calf Tenderness, No Pedal Edema Skin: Normal Color, Warm/Dry Neurologic/Psychiatric: Alert, Oriented x3, No Motor/Sensory Deficits, Normal Mood/Affect Hospital Course 05/03/20 -Pt presents to ED from [facility] due to right facial cellulitis -Pt admitted with IV antibiotics -Dr. Villarreal consulted -WBC 11.8 05/04/20 -Pt maintains swelling, warmth, and pain at site -Pt taken to OR for I/C with teeth extraction -WBC 8.7 05/05/20 -Pt notes much improved condition -Pt doing well post op with drainage and bandage in place -Dr. Villarreal planing to remove drain -WBC 10.2 -Maintained on clindamycin PO following discharge -Pt stable and well to be medically discharged Labs (last 24 hrs) Laboratory Tests 05/04/20 14:12: Urine Test NEGATIVE 05/04/20 16:05: 05/05/20 05:38: White Blood Count 10.2, Red Blood Count 3.45L, Hemoglobin 11.0L, Hematocrit 32L, Mean Corpuscular Volume 93, Mean Corpuscular Hemoglobin 32, Mean Corpuscular Hemoglobin Concent 34, Red Cell Distribution Width 13.5, Platelet Count 319, Mean Platelet Volume 9.3, Immature Granulocyte % (Auto) 0, Neutrophils (%) (Auto) 81H, Lymphocytes (%) (Auto) 15, Monocytes (%) (Auto) 4, Eosinophils (%) (Auto) 0, Basophils (%) (Auto) 0, Neutrophils # (Auto) 8.3H, Lymphocytes # (Auto) 1.6, Monocytes # (Auto) 0.4, Eosinophils # (Auto) 0.0, Basophils # (Auto) 0.0, Immature Granulocyte # (Auto) 0.0, Sodium Level 137, Potassium Level 4.1, Chloride Level 109H, Carbon Dioxide Level 19L, Anion Gap 9, Blood Urea Nitrogen 7, Creatinine 0.53L, Estimat Glomerular Filtration Rate > 60, BUN/Creatinine Ratio 13, Glucose Level 118H, Calcium Level 8.6, Corrected Calcium 9.2, Total Bilirubin 0.2, Aspartate Amino Transf (AST/SGOT) 27, Alanine Aminotransferase (ALT/SGPT) 31, Alkaline Phosphatase 64, Total Protein 5.7L, Albumin 3.3 Microbiology 05/03/20 Blood Culture - Preliminary, Resulted No growth Patient resulted labs reviewed. Pending Labs Laboratory Tests 05/05/20 05:38: White Blood Count 10.2, Red Blood Count 3.45, Hemoglobin 11.0, Hematocrit 32, Mean Corpuscular Volume 93, Mean Corpuscular Hemoglobin 32, Mean Corpuscular Hemoglobin Concent 34, Red Cell Distribution Width 13.5, Platelet Count 319, Mean Platelet Volume 9.3, Immature Granulocyte % (Auto) 0, Neutrophils (%) (Auto) 81, Lymphocytes (%) (Auto) 15, Monocytes (%) (Auto) 4, Eosinophils (%) (Auto) 0, Basophils (%) (Auto) 0, Neutrophils # (Auto) 8.3, Lymphocytes # (Auto) 1.6, Monocytes # (Auto) 0.4, Eosinophils # (Auto) 0.0, Basophils # (Auto) 0.0, Immature Granulocyte # (Auto) 0.0, Sodium Level 137, Potassium Level 4.1, Chloride Level 109, Carbon Dioxide Level 19, Anion Gap 9, Blood Urea Nitrogen 7, Creatinine 0.53, Estimat Glomerular Filtration Rate > 60, BUN/Creatinine Ratio 13, Glucose Level 118, Calcium Level 8.6, Corrected Calcium 9.2, Total Bilirubin 0.2, Aspartate Amino Transf (AST/SGOT) 27, Alanine Aminotransferase (ALT/SGPT) 31, Alkaline Phosphatase 64, Total Protein 5.7, Albumin 3.3 Discharge Home Medications: Active Scripts Active Clindamycin HCl 300 Mg Capsule 300 Mg PO TID Hydrocodone-Acetamin 5-325 mg (Hydrocodone/Acetaminophen) 1 Each Tablet 1 Ea PO Q4H PRN Reported Vitamins For Hair (Multivitamin) 1 Each Tablet 1 Each PO DAILY Losartan Potassium 50 Mg Tablet 50 Mg PO DAILY Levothyroxine Sodium 50 Mcg Tablet 50 Mcg PO DAILY Amoxicillin 500 Mg Capsule 500 Mg PO TID FILLED 04-30-2020 #30 DAY SUPPLY Instructions to patient/family Please see electronic discharge instructions given to patient. GAVIOTA VIDAL DO 05/06/20 0524: Diagnosis/Chief Complaint Discharge Diagnosis (1) Facial cellulitis Status: Acute Discharge Summary Discharge Physical Exam Allergies: Coded Allergies: delgadillo (Unverified Allergy, Severe, Anaphylaxis, 05/04/20) Mercedes Beans specifically, per patient. strawberry (Verified Allergy, Severe, Anaphylaxis, 05/03/20) Latex, Natural Rubber (Verified Allergy, Unknown, 05/03/20) carbamazepine (Verified Allergy, Unknown, 05/03/20) latex (Verified Allergy, Unknown, 05/03/20) tramadol (Verified Allergy, Unknown, 05/03/20) Uncoded Allergies: MERCEDES DELGADILLO (Allergy, Severe, Anaphylaxis, 05/03/20) General Appearance: No Apparent Distress, WD/WN, Chronically ill Respiratory: Lungs Clear Cardiovascular: Regular Rate, Rhythm Hospital Course Was the Problem List Reviewed?: Yes Verification and Attestation of Medical Student E/M Service A medical student performed and documented this service in my presence. I reviewed and verified all information documented by the medical student and made modifications to such information, when appropriate. I personally performed the physical exam and medical decision making. Gaviota Vidal, May 06, 2020,05:24 Discussion & Recommendations Discharge Planning: <30 minutes discharge planning Supervisory-Addendum Brief Verification & Attestation Participated in pt care: history, MDM, physical Personally performed: exam, history, MDM, supervision of care Care discussed with: Medical Student Procedures: n/a Results interpretation: Verified all documentation Verification and Attestation of Medical Student E/M Service A medical student performed and documented this service in my presence. I reviewed and verified all information documented by the medical student and made modifications to such information, when appropriate. I personally performed the physical exam and medical decision making. Gaviota Vidal, May 06, 2020,05:24 PILAR HELTON MED STUDENT May 05, 2020 11:58 GAVIOTA VIDAL DO May 06, 2020 05:24
[2020-05-05 12:00] VITALS: BP 121/77
--- NOTE | 2020-05-05 14:34 | Anesthesia-General Post-Op ---
General Patient Condition Mental Status/LOC: Same as Preop Cardiovascular: Satisfactory Nausea/Vomiting: Absent Respiratory: Satisfactory Pain: Controlled Complications: Absent Post Op Complications Complications None Follow Up Care/Instructions Patient Instructions None needed. Anesthesia/Patient Condition Patient Condition Patient was seen this morning in post-op rounds this morning and she was doing well, no complaints, stable vital signs, no apparent adverse anesthesia problems. She is currently discharged to home. YULIET FERNANDEZ DO May 05, 2020 14:34
--- NOTE | 2020-05-26 00:47 | OPERATIVE REPORT ---
DATE OF SERVICE: 05/04/2020 TIP STRETCHER. PREOPERATIVE DIAGNOSIS: Right facial cellulitis buccal and wire threader space. POSTOPERATIVE DIAGNOSIS: Right facial cellulitis buccal and wire threader space. PROCEDURES PERFORMED: Incision and drainage of right buccal space abscess. Also, extraction of teeth numbers 30 and 31. SURGEON: Lorenzo Christian DDS. GREENHOUSE INSTRUCTOR: Brisa ____. ANESTHESIA: General endotracheal. COMPLICATIONS: There were no complications. ESTIMATED BLOOD LOSS: Minimal. FLUIDS: 1100 mL of crystalloid. HISTORY OF PRESENT ILLNESS AND INDICATIONS FOR PROCEDURE: The patient is a 34-year-old otherwise healthy white female, who originally sought treatment at the [facility] in [place], when she presented with facial cellulitis from a carious and nonfunctional tooth on her mandible. After seeing, they placed her on oral antibiotics for approximately a week; however, she did not improve. Subsequently, she sought treatment at the emergency room where they gave her Rocephin IM, at which point they then consulted me and I advised them to admit her and that we would evaluate her and then perform an incision and drainage at [facility]. I spoke extensively with the patient. She stated that this has been going on for approximately three weeks. She had obviously failed outpatient oral antibiotics after I spoke and advised her we will have to remove the broken down teeth in the lower right aspect of the mandible as well as perform an intraoral and extraoral drainage. Care was taken to explain the risks versus benefits of the procedure. In particular, damage to the facial nerve and/or the sensory nerves in this region. She had the appropriate amount of time allowed to ask and have her questions answered and then she elected for the procedure and it was going to be performed at the earliest operating time at [facility]. DESCRIPTION OF PROCEDURE: The patient was taken to the operating room and placed on the operating table. Appropriate monitors were placed and anesthesia was induced via orotracheal intubation without difficulty. Once this was secured, the surgeon left the room, scrubbed, returned, donned sterile gowns and gloves and prepped and draped the patient in the usual standard sterile fashion. After depositing local anesthesia and the left mandibular block as well as extraorally over the buccinator muscle, this was allowed to take effect, I then excised with a 15 blade and made a full thickness mucoperiosteal flap incision, dissected on the lateral aspect of the mandible in which case, the purulent drainage was achieved. This was cultured and sent for studies. After this, I was able to identify the abscess cavity extraorally and then using a #15 blade, I made percutaneous access and drained approximately 5 to 10 mL of purulent material. A drain was placed, a latex-free Chelsey and this was sewn in with a 3-0 chromic suture. After this, we turned our attention to the mandible and after removing any interfering bone, I removed teeth numbers 31 and 32 without difficulty. There was no excessive hemorrhage and the neurovascular bundle was not visualized. We left the wound open to drain. Gauze was placed for hemostasis. We placed a throat pack prior to starting the procedure and then this was removed. She was allowed to emerge from her general anesthetic until she was breathing spontaneously. She was then extubated and then taken to the recovery room, assessed to have stable vital signs, breathing spontaneously with a pulse ox 99%. Job ID: [id number] DocumentID: [id number] Dictated Date: 05/25/2020 15:21:00 Cleaner And Presser Date: 05/25/2020 20:03:12 Dictated By: LORENZO CHRISTIAN DDS
== END 2020-05-05 13:55 | disposition home or self-care (01) | DRG 581 ==
LOC: ER 10:52 → 4TH 13:38
PROVIDERS: ADMIT Internal Medicine; ATTEND Internal Medicine
PROC: 0CDXXZ1 Extraction of Lower Tooth, Multiple, External Approach (ICD-10-PCS; 2020-05-04)
PROC: 0J910ZZ Drainage of Face Subcutaneous Tissue and Fascia, Open Approach (ICD-10-PCS; principal; 2020-05-04 15:55)
DX: L03.211 Cellulitis of face (principal); K02.9 Dental caries, unspecified; I10 Essential (primary) hypertension; E03.9 Hypothyroidism, unspecified; F17.200 Nicotine dependence, unspecified, uncomplicated; Z72.89 Other problems related to lifestyle; Z20.822 Contact with and (suspected) exposure to COVID-19; Z88.6 Allergy status to analgesic agent; Z91.040 Latex allergy status; Z91.018 Allergy to other foods
CPT/HCPCS: 36415; 70491; 80048; 80053; 83605; 84703; 85025; 85610; 85730; 86141; 87040; 87070; 87075; 87076; 87077; 87101; 87185; 87205; 87635; 96361; 96365; 96375; 96376